=== PATIENT | female | born 1940 | race Caucasian/White ===

== ENCOUNTER 2019-10-04 13:31 | Emergency (ER) | payer MEDICARE ==
[2019-10-04] MEDS ORDERED: Sodium Chloride 0.9% 1,000 ML ONE (15:03)
[2019-10-04 15:07] LABS: #Lymphocytes 1.3 thou/uL (1.20-3.40); #Monocytes 0.8 thou/uL (0.11-0.59); #Neutrophils 8.8 thou/uL (1.40-6.50); %Basophils 0.2 % (0.0-1.0); %Eosinophils 0.2 % (0.0-10.0); %Lymphocytes 11.6 % (21.0-51.0); Hemoglobin 10.7 g/dL (12.0-16.0); Mean Corpuscular HGB CONC 30.7 g/dL (32.0-36.0); Mean Corpuscular Hemoglobin 25.8 pg (27.0-31.0); Mean Corpuscular Volume 83.9 fL (78.0-98.0); Mean Platelet Volume 6.3 fL (7.4-10.4); Platelet Count 283 thou/uL (130-400); RBC Distribution Width 12.7 % (11.5-14.5); Red Blood Cell (RBC) Count 4.15 mill/uL (4.20-5.40); White Blood Cell (WBC) Count 10.8 thou/uL (4.8-10.8)
[2019-10-04 15:24] LABS: ALT (SGPT) Less than 7 U/L (8-55); AST (SGOT) 7 U/L (5-34); Albumin 3.9 g/dL (3.4-4.8); Alkaline Phosphatase 75 U/L (40-110); Anion Gap 13 mmol/L (10-20); BUN (Urea Nitrogen) 17 mg/dL (9.8-20.1); Bilirubin, Total 0.7 mg/dL (0.2-1.2); CK (CPK) 15 U/L (29-168); Calc. Creatinine Clearance 0 mL/min (70-130); Calcium 9.7 mg/dL (7.8-10.44); Carbon Dioxide 30 mmol/L (23-31); Chloride 94 mmol/L (98-107); Estimated GFR-MDRD 65; Globulin 2.7 g/dL (2.4-3.5); Glucose 104 mg/dL (83-110); Magnesium 1.7 mg/dL (1.6-2.6); Potassium 3.1 mmol/L (3.5-5.1); Protein, Total 6.6 g/dL (6.0-8.3); Sodium 134 mmol/L (136-145)
[2019-10-04 15:42] LABS: CKMB 0.6 ng/mL (0-6.6)
[2019-10-04] MEDS ORDERED: Potassium Chloride 20 MEQ TAB ONE (15:48)
--- NOTE | 2019-10-04 16:13 | RAD ---
CHEST 2 VIEWS: Date: 10/04/2019 HISTORY: History of Parkinson's. Dry cough, weakness, fatigue, weight loss. COMPARISON: Chest 2 views dated 07/05/2019. Chest CT scan without IV contrast dated 05/15/2019. FINDINGS: Again noted is a poorly circumscribed pleural based mass in the right upper lobe laterally with some parenchymal disease extending from this mass into the right hilum which is enlarged and poorly define d. There is a 2.3 cm diameter mass in the right infrahilar region which is in the right middle lobe. In addition, there is a poorly circumscribed, somewhat spiculated looking parenchymal density, possib ly a mass, in the right suprahilar region which is definitely more prominent than on prior imaging. T here is some hyperinflation and blunting of both costophrenic angles bilaterally. Heart size is kae l. The left lung is clear. IMPRESSION: Poorly circumscribed right upper lobe pleural based mass with parenchymal density extending from the mass into the right hilum which is prominent. 2.3 cm diameter mass in the right middle lobe which is poorly circumscribed. Probable third mass in right upper lobe suprahilar region measuring 1.6 cm. These are consistent with multiple primary neoplasms. Fullness of the right hilar and paratracheal re gion, concerning for associated adenopathy. To evaluate for change relative to the prior CT scan of 05/15/2019, a follow-up nonemergent CT scan o n an outpatient basis might be considered. CODE T.
[2019-10-04] MEDS ORDERED: Aspirin Chewable 81 MG TAB ONE (16:14)
[2019-10-04 16:54] LABS: Bilirubin Negative (Negative); Blood, Urine Negative (Negative); Glucose, Urine (Dipstick) Negative (Negative); Leukocyte Small (Negative); Nitrite Negative (Negative); Protein, Urine (Dipstick) Negative (Neg-Trace); Urobilinogen 0.2 mg/dL (Less than 2)
[2019-10-04 16:55] LABS: Clarity Hazy (Clear)
[2019-10-04 17:00] LABS: Bacteria/HPF 1+ HPF (None Seen); RBC/HPF 0-3 HPF (0-3); Squamous Epithelial 0-3 HPF (0-3)
== END 2019-10-04 16:38 | disposition short-term general hospital (02) ==
LOC: MADERS 13:31
DX: E87.6 Hypokalemia (principal); R62.7 Adult failure to thrive; R91.8 Other nonspecific abnormal finding of lung field; Z87.891 Personal history of nicotine dependence; Z79.899 Other long term (current) drug therapy
CPT/HCPCS: 71046; 80053; 81003; 81015; 82550; 82553; 83605; 83735; 83880; 84443; 84484; 85025; 93005; 94760; 96360; 96361; J7050

== ENCOUNTER 2021-05-01 10:40 | Emergency (ER) | payer MEDICARE ==
[2021-05-01 11:59] LABS: Anisocytosis SLIGHT = 6-15 cells (100X) (0-5/hpf); Band 7 % (5-11); Hemoglobin 8.8 g/dL (12.0-16.0); Lymphocytes 17 % (21-51); MDiff Complete? YES; Mean Corpuscular HGB CONC 31.3 g/dL (32.0-36.0); Mean Corpuscular Hemoglobin 30.6 pg (27.0-31.0); Mean Corpuscular Volume 97.6 fL (78.0-98.0); Mean Platelet Volume 6.8 fL (7.4-10.4); Monocytes 13 % (0-10); Neutrophil 63 % (42-75); Ovalocytes SLIGHT = 2-5 cells (100X) (0-1/hpf); Platelet Count 178 thou/uL (130-400); Poikilocytosis SLIGHT = 6-15 cells (100X) (0-5/hpf); RBC Distribution Width 15.3 % (11.5-14.5); Red Blood Cell (RBC) Count 2.88 mill/uL (4.20-5.40); Tear Drops SLIGHT = 2-5 cells (100X) (0-1/hpf); White Blood Cell (WBC) Count 3.9 thou/uL (4.8-10.8)
[2021-05-01 12:04] LABS: ALT (SGPT) 21 U/L (8-55); AST (SGOT) 205 U/L (5-34); Albumin 3.5 g/dL (3.4-4.8); Alkaline Phosphatase 356 U/L (40-110); Anion Gap 14 mmol/L (10-20); BUN (Urea Nitrogen) 13 mg/dL (9.8-20.1); Bilirubin, Total 1.9 mg/dL (0.2-1.2); Calc. Creatinine Clearance 0 mL/min (70-130); Calcium 9.6 mg/dL (7.8-10.44); Carbon Dioxide 26 mmol/L (23-31); Chloride 102 mmol/L (98-107); Globulin 2.8 g/dL (2.4-3.5); Glucose 94 mg/dL (83-110); Lipase 12 U/L (8-78); Potassium 3.5 mmol/L (3.5-5.1); Protein, Total 6.3 g/dL (5.8-8.1); Sodium 138 mmol/L (136-145)
[2021-05-01 12:08] LABS: D-Dimer Test 0.37 *mcg/mL (0.27-0.43)
[2021-05-01 12:09] LABS: INR-International Normal Ratio 11.5; PTT 147.4 sec (22.9-36.1)
[2021-05-01 12:14] LABS: Prothrombin Time 92.1 sec (12.0-14.7)
[2021-05-01] MEDS ORDERED: Phytonadione 10 MG/ML AMP ONE (13:02)
== END 2021-05-01 13:20 | disposition home or self-care (01) ==
LOC: MADERS 10:40
DX: C34.91 Malignant neoplasm of unspecified part of right bronchus or lung (principal); D64.9 Anemia, unspecified; D68.9 Coagulation defect, unspecified; K21.9 Gastro-esophageal reflux disease without esophagitis; G20 Parkinson's disease; Z87.891 Personal history of nicotine dependence; Z86.711 Personal history of pulmonary embolism; Z79.899 Other long term (current) drug therapy
CPT/HCPCS: 36415; 71045; 80053; 83605; 83690; 83880; 84484; 85025; 85379; 85610; 85730; 93005; J3430

== ENCOUNTER 2021-07-19 14:13 | Emergency (ER) | payer MEDICARE ==
[2021-07-19 15:29] LABS: ALT (SGPT) Less than 7 U/L (8-55); AST (SGOT) 11 U/L (5-34); Albumin 3.3 g/dL (3.4-4.8); Alkaline Phosphatase 70 U/L (40-110); Anion Gap 9 mmol/L (10-20); BUN (Urea Nitrogen) 17 mg/dL (9.8-20.1); Bilirubin, Total 0.5 mg/dL (0.2-1.2); Calc. Creatinine Clearance 0 mL/min (70-130); Calcium 9.2 mg/dL (7.8-10.44); Carbon Dioxide 28 mmol/L (23-31); Chloride 107 mmol/L (98-107); Globulin 2.9 g/dL (2.4-3.5); Glucose 128 mg/dL (83-110); Lipase 31 U/L (8-78); Potassium 4.2 mmol/L (3.5-5.1); Protein, Total 6.2 g/dL (5.8-8.1); Sodium 140 mmol/L (136-145)
[2021-07-19 15:37] LABS: Hemoglobin 9.9 g/dL (12.0-16.0); Hypochromia SLIGHT = 6-15 cells (100X) (0-5/hpf); Lymphocytes 68 % (21-51); MDiff Complete? YES; Mean Corpuscular HGB CONC 31.4 g/dL (32.0-36.0); Mean Corpuscular Hemoglobin 28.4 pg (27.0-31.0); Mean Corpuscular Volume 90.5 fL (78.0-98.0); Mean Platelet Volume 7.6 fL (7.4-10.4); Monocytes 10 % (0-10); Neutrophil 16 % (42-75); Platelet Count 142 thou/uL (130-400); Platelet Morphology Comment Appears Adequate; RBC Distribution Width 14.1 % (11.5-14.5); Reactive Lymphocytes 6 % (0-10); Red Blood Cell (RBC) Count 3.49 mill/uL (4.20-5.40); White Blood Cell (WBC) Count 1.1 thou/uL (4.8-10.8)
== END 2021-07-19 17:30 | disposition home or self-care (01) ==
LOC: MADERS 14:13
DX: R10.13 Epigastric pain (principal); R53.1 Weakness; K21.9 Gastro-esophageal reflux disease without esophagitis; Z87.891 Personal history of nicotine dependence; Z79.899 Other long term (current) drug therapy
CPT/HCPCS: 36415; 71045; 80053; 83690; 84484; 85025; 93005

== ENCOUNTER 2021-12-09 14:59 | Emergency (ER) | payer MEDICARE ==
[~2021-12-09 14:59] MED LIST: Iopamidol 370 76% 125 ML VIAL FS ONE; Sodium Chloride 0.9% 100 ML BAG ONE
[2021-12-09 15:57] LABS: #Lymphocytes 0.8 thou/uL (1.20-3.40); #Monocytes 0.1 thou/uL (0.11-0.59); #Neutrophils 5.5 thou/uL (1.40-6.50); %Basophils 0.3 % (0.0-1.0); %Lymphocytes 12.9 % (21.0-51.0); %Monocytes 1.2 % (0.0-10.0); %Neutrophils 85.6 % (42.0-75.0); Hemoglobin 10.9 g/dL (12.0-16.0); Hypochromia SLIGHT = 6-15 cells (100X) (0-5/hpf); MDiff Complete? YES; Mean Corpuscular HGB CONC 30.5 g/dL (32.0-36.0); Mean Corpuscular Hemoglobin 26.8 pg (27.0-31.0); Mean Platelet Volume 12.6 fL (7.4-10.4); Platelet Count 25 thou/uL (130-400); Platelet Morphology Comment Appears Decreased; RBC Distribution Width 15.2 % (11.5-14.5); Red Blood Cell (RBC) Count 4.08 mill/uL (4.20-5.40); White Blood Cell (WBC) Count 6.4 thou/uL (4.8-10.8)
[2021-12-09 16:00] LABS: ALT (SGPT) Less than 7 U/L (8-55); AST (SGOT) 14 U/L (5-34); Albumin 3.5 g/dL (3.4-4.8); Alkaline Phosphatase 60 U/L (40-110); Anion Gap 18 mmol/L (10-20); BUN (Urea Nitrogen) 32 mg/dL (9.8-20.1); Bilirubin, Total 1.9 mg/dL (0.2-1.2); Calc. Creatinine Clearance 0 mL/min (70-130); Calcium 8.6 mg/dL (7.8-10.44); Carbon Dioxide 22 mmol/L (23-31); Chloride 102 mmol/L (98-107); Globulin 2.8 g/dL (2.4-3.5); Glucose 114 mg/dL (83-110); Potassium 3.7 mmol/L (3.5-5.1); Protein, Total 6.3 g/dL (5.8-8.1); Sodium 138 mmol/L (136-145)
[2021-12-09] MEDS ORDERED: Sodium Chloride 0.9% 1,000 ML ONE (17:04)
[2021-12-09 17:53] LABS: Bilirubin Negative (Negative); Blood, Urine Trace (Negative); Glucose, Urine (Dipstick) Negative (Negative); Ketone, Urine Trace mg/dL (Negative); Leukocyte Negative (Negative); Nitrite Negative (Negative); Protein, Urine (Dipstick) > or equal to 300 mg/dL (Neg-Trace); Urobilinogen 0.2 mg/dL (Less than 2)
[2021-12-09 17:56] LABS: Clarity Hazy (Clear)
[2021-12-09 17:59] LABS: Bacteria/HPF 1+ HPF (None Seen); RBC/HPF 0-3 HPF (0-3); Squamous Epithelial 0-3 HPF (0-3)
== END 2021-12-09 19:32 | disposition short-term general hospital (02) ==
LOC: MADERS 14:59
DX: R55 Syncope and collapse (principal); S32.010A Wedge compression fracture of first lumbar vertebra, initial encounter for closed fracture; S32.020A Wedge compression fracture of second lumbar vertebra, initial encounter for closed fracture; D64.9 Anemia, unspecified; D69.6 Thrombocytopenia, unspecified; C78.00 Secondary malignant neoplasm of unspecified lung; G20 Parkinson's disease; K21.9 Gastro-esophageal reflux disease without esophagitis; Z87.891 Personal history of nicotine dependence; X58.XXXA Exposure to other specified factors, initial encounter; Z79.899 Other long term (current) drug therapy; Z79.01 Long term (current) use of anticoagulants
CPT/HCPCS: 70450; 71045; 71275; 80053; 81003; 81015; 84484; 85025; 85379; 93005; J7050; Q9967